=== PATIENT | female | born 1975 | race Caucasian/White ===

== ENCOUNTER → 2018-02-04 | Emergency (ER) | payer MEDICAID, OTHER ==
[~2018-02-04] VITALS: Ht 571.8 cm; Wt 75.0 kg
[~2018-02-04] MED LIST: HYDR-569 PO
[2018-02-04 12:43] VITALS: BP 149/102
== END | disposition home or self-care (01) ==
LOC: ER 12:36
DX: F15.10 Other stimulant abuse, uncomplicated (principal); Z88.8 Allergy status to other drugs, medicaments and biological substances; Z79.899 Other long term (current) drug therapy
CPT/HCPCS: 99281